=== PATIENT | female | born 1930 | race Caucasian/White ===

== ENCOUNTER → 2016-09-10 | Outpatient (CLI) | payer OTHER ==
[~2016-09-10] MED LIST: ADULT LOW DOSE81 MG PO; CALCIUM 600 +1 EAC1 PO; FISH OIL 1,0001 EAC5 PO; GLUCOSAMINE &1 EAC1 PO; HYDROCODON-ACE1 EAC7 PO; LEVOTHYROXIN0.025 MG PO; MOBIC15 MG PO; PRAVASTATIN SOD40 MG PO; PRILOSEC 20 MG20 MG PO; VITAMIN E400 UNIT PO; ZESTORETIC 20-1 EAC3 PO; ZOLOFT 50 MG TA50 M1 PO
== END ==
LOC: RAD 10:06
DX: I51.7 Cardiomegaly (principal); I49.9 Cardiac arrhythmia, unspecified

== ENCOUNTER → 2019-06-16 | Outpatient (CLI) | payer OTHER | LOC: SJCVC 13:50 | DX: R94.31 Abnormal electrocardiogram [ECG] [EKG] (principal); I21.29 ST elevation (STEMI) myocardial infarction involving other sites; I44.0 Atrioventricular block, first degree; R00.1 Bradycardia, unspecified; I25.5 Ischemic cardiomyopathy; I50.20 Unspecified systolic (congestive) heart failure; I10 Essential (primary) hypertension; E78.5 Hyperlipidemia, unspecified ==

== ENCOUNTER → 2019-12-22 | Outpatient (CLI) | payer OTHER | LOC: SJCVC 12:36 | PROVIDERS: ATTEND Internal Medicine | DX: R94.31 Abnormal electrocardiogram [ECG] [EKG] (principal); I25.5 Ischemic cardiomyopathy; I50.20 Unspecified systolic (congestive) heart failure; E78.5 Hyperlipidemia, unspecified; I11.0 Hypertensive heart disease with heart failure; I25.2 Old myocardial infarction; I49.3 Ventricular premature depolarization; Z79.899 Other long term (current) drug therapy; Z90.49 Acquired absence of other specified parts of digestive tract ==

== ENCOUNTER → 2020-12-25 | Outpatient (CLI) | payer OTHER | LOC: SJCVC 09:17 | PROVIDERS: ATTEND Internal Medicine | DX: R94.31 Abnormal electrocardiogram [ECG] [EKG] (principal); I44.0 Atrioventricular block, first degree; I25.5 Ischemic cardiomyopathy; I50.20 Unspecified systolic (congestive) heart failure; E78.5 Hyperlipidemia, unspecified; Z79.899 Other long term (current) drug therapy; Z79.82 Long term (current) use of aspirin; Z87.891 Personal history of nicotine dependence; Z72.89 Other problems related to lifestyle ==